=== PATIENT | male | born 1970 | race African-American/Black ===

== ENCOUNTER 2018-09-13 19:44 | Outpatient (CLI) | payer BC | END 2018-09-14 06:45 | disposition home or self-care (01) | LOC: SLEEP 19:44 | PROVIDERS: ATTEND Nurse Practitioner Family | DX: G47.10 Hypersomnia, unspecified (principal); J30.2 Other seasonal allergic rhinitis; E66.01 Morbid (severe) obesity due to excess calories | CPT/HCPCS: 95811 ==

== ENCOUNTER → 2023-01-05 | Outpatient (CLI) | payer BC | END | disposition home or self-care (01) | LOC: PREOP 05:40 | PROVIDERS: ATTEND Internal Medicine | DX: Z01.818 Encounter for other preprocedural examination (principal) ==